=== PATIENT | female | born 1990 | race Caucasian/White ===

== ENCOUNTER 2020-05-29 11:12 | Day surgery (SDC) | payer OTHER ==
[~2020-05-29] VITALS: Ht 162.6 cm; Wt 90.0 kg
[~2020-05-29 11:12] MED LIST: ALBU90OI INH; CYCL10 PO; HYDACE5 PO; IBUP600 PO; PROM25 PO; RANI150 PO
--- NOTE | 2020-05-29 14:41 | NUR ---
PT HAD SMALL AMOUNT OF S/S DRAINAGE ON THU PAD AFTER GETTING UP TO GET DRESSED. Patient up to Ambulate independently. Gait steady. Discharge instructions reviewed with patient. Patient verbalizes understanding. Copy given to patient to take home. Patient States Post-Procedure ride home has been arranged. Discharged via wheelchair to private car for ride home. ALL BELONINGS RETURNED TO PATIENT.
--- NOTE | 2020-05-30 07:21 | NUR ---
05/30/20 0721 Soniya Li VERIFICATIONS: EDIT CHART.
== END 2020-05-29 22:58 | disposition home or self-care (01) ==
LOC: ORSCMMR 11:12 → ORD 12:15 → ORSCMMR 22:58
PROVIDERS: Obstetrics & Gynecology
PROC: 10D17ZZ Extraction of Products of Conception, Retained, Via Natural or Artificial Opening (ICD-10-PCS; principal; 2020-05-29 12:15)
DX: O03.39 Incomplete spontaneous abortion with other complications (principal)
CPT/HCPCS: 88305; J0690; J1100; J1885; J2210; J2250; J2405; J2704; J3010; J7120

== ENCOUNTER → 2024-11-09 | Outpatient (CLI) | payer OTHER | LOC: LAB 09:22 → LAB SHORT 09:22 | DX: O09.90 Supervision of high risk pregnancy, unspecified, unspecified trimester (principal); Z3A.00 Weeks of gestation of pregnancy not specified | CPT/HCPCS: 87081; 87150 ==

== ENCOUNTER 2024-12-14 07:12 | Inpatient (IN) | payer OTHER ==
[2024-12-14] VITALS (41 sets, daily range): BP systolic 74–156; BP diastolic 42–121
[~2024-12-14] VITALS: Ht 162.6 cm; Wt 95.2 kg
[2024-12-14] MEDS ORDERED: Misoprostol 200 MCG Tab PR PRN (10:35)
[2024-12-14] MEDS ORDERED: Acetaminophen 500 MG Tab PO PRN (10:35)
[2024-12-14] MEDS ORDERED: Penicillin G Potassium 5,000,000 UNITS in NS 250 ML IV ONE (10:35)
[2024-12-14] MEDS ORDERED: Lactated Ringer's 1,000 ML IV PRN (10:35)
[2024-12-14] MEDS ORDERED: Oxytocin 10 Unit / ML Vial IM PRN (10:35)
[2024-12-14] MEDS ORDERED: Calcium Carbonate 500 MG Tab Chew PO SCH (10:35)
[2024-12-14] MEDS ORDERED: Tranexamic Acid 100 ML IV SCH (10:35)
[2024-12-14] MEDS ORDERED: Carboprost Tromethamine 250 MCG/ML 1ML Amp IM PRN (10:35)
[2024-12-14] MEDS ORDERED: Misoprostol 200 MCG Tab BC PRN (10:35)
[2024-12-14] MEDS ORDERED: Ondansetron HCl 2 MG / ML 2ML Vial IV PRN (10:35)
[2024-12-14] MEDS ORDERED: OXYTOCIN/RINGER'S LACTATE 500 ML IV PRN (10:35)
[2024-12-14] MEDS ORDERED: Methylergonovine Maleate 0.2MG / ML 1ML Amp IM PRN (10:35)
[2024-12-14 10:47] LABS: BASOPHILS ABSOLUTE AUTO 0.05 K/mm3 (0.00-0.23); BASOPHILS PERCENT AUTO 1 % (0-2); EOSINOPHILS ABSOLUTE AUTO 0.12 K/mm3 (0.00-0.68); EOSINOPHILS PERCENT AUTO 1 % (0-6); Hematocrit 32.9 % (33.0-51.0); Hemoglobin 10.6 g/dL (11.5-16.0); IMMATURE GRAN ABSOLUTE AUTO 0.12 K/mm3 (0.00-0.10); IMMATURE GRAN PERCENT AUTO 1 % (0-1); LYMPHOCYTES ABSOLUTE AUTO 1.62 K/mm3 (0.84-5.20); LYMPHOCYTES PERCENT AUTO 17 % (21-46); MONOCYTES ABSOLUTE AUTO 0.77 K/mm3 (0.16-1.47); MONOCYTES PERCENT AUTO 8 % (4-13); Mean Corpuscular HGB 26.7 pg (26.0-34.0); Mean Corpuscular HGB Conc 32.2 g/dL (31.5-36.5); Mean Corpuscular Volume 83 fL (80-100); NEUTROPHILS ABSOLUTE AUTO 7.12 K/mm3 (1.96-9.15); NEUTROPHILS PERCENT AUTO 73 % (41-73); Platelet Count 301 K/mm3 (150-400); RDW Coefficient Variation 15.1 % (11.7-14.2); RDW Standard Deviation 45.1 fL (35.1-46.3); Red Blood Cell Count 3.97 M/mm3 (3.80-5.20)
[2024-12-14] MEDS ORDERED: PRENATAL TABLE1 EAC2 PO (11:12)
[2024-12-14] MEDS ORDERED: Aspir 8181 MG PO (11:12)
[2024-12-14] MEDS ORDERED: ePHEDrine Sulfate 50 MG/ML 1ML Injection XX PRN (12:35)
[2024-12-14] MEDS ORDERED: FentaNYL 2mcg/ml-Bup 0.1% Epd 250 ML EPI PRN (12:35)
[2024-12-14] MEDS ORDERED: Lactated Ringer's 1,000 ML IV SCH ×2 (12:35)
[2024-12-14] MEDS ORDERED: IBUP800 PO (13:24)
[2024-12-14] MEDS ORDERED: Penicillin G Potassium 2,500,000 UNITS in Dextrose 5% 100 ML IV SCH (14:45)
[2024-12-14] MEDS ORDERED: FentaNYL Citrate 50 MCG/ML 2 ML Injection ONE ×2 (15:14→23:53)
[2024-12-14] MEDS ORDERED: FentaNYL Citrate 50 MCG/ML 2 ML Injection IV ONE (15:15)
[2024-12-15] VITALS (51 sets, daily range): BP systolic 70–131; BP diastolic 38–89
[2024-12-15] MEDS ORDERED: Misoprostol 200 MCG Tab PO SCH ×2 (00:05→02:25)
[2024-12-15] MEDS ORDERED: Lactated Ringer's 1,000 ML IV ONE ×3 (00:05→02:25)
[2024-12-15] MEDS ORDERED: Methylergonovine Maleate 0.2MG / ML 1ML Amp IM SCH ×2 (00:05→02:25)
[2024-12-15] MEDS ORDERED: Carboprost Tromethamine 250 MCG/ML 1ML Amp IM SCH ×2 (00:05→02:25)
[2024-12-15] MEDS ORDERED: CeFAZolin Sodium 2,000 MG in NS 100 ML IV ONE ×2 (00:05→04:00)
[2024-12-15] MEDS ORDERED: NS 250 ML IV SCH (00:10)
[2024-12-15] MEDS ORDERED: OXYTOCIN/RINGER'S LACTATE 500 ML IV ONE (00:13)
[2024-12-15] MEDS ORDERED: NS 1,000 ML IV ONE ×2 (00:19→08:05)
[2024-12-15 00:25] LABS: Hematocrit 26.7 % (33.0-51.0); Hemoglobin 8.5 g/dL (11.5-16.0); Mean Corpuscular HGB 26.3 pg (26.0-34.0); Mean Corpuscular HGB Conc 31.8 g/dL (31.5-36.5); Mean Corpuscular Volume 83 fL (80-100); Mean Platelet Volume 8.8 fL (9.1-12.4); Platelet Count 245 K/mm3 (150-400); RDW Standard Deviation 45.4 fL (35.1-46.3); Red Blood Cell Count 3.23 M/mm3 (3.80-5.20); White Blood Cell Count 17.35 K/mm3 (4.00-11.30)
[2024-12-15 00:57] LABS: International Normalized Ratio 0.88; Prothrombin Time Results 9.5 Sec (9.7-11.5)
[2024-12-15] MEDS ORDERED: Misoprostol 200 MCG Tab PR PRN (01:15)
[2024-12-15] MEDS ORDERED: Acetaminophen 325 MG TABLET PO PRN (01:20)
[2024-12-15] MEDS ORDERED: Carboprost Tromethamine 250 MCG/ML 1ML Amp IM PRN (01:20)
[2024-12-15] MEDS ORDERED: Benzocaine Topical Anesthetic Spray 60GM TOP PRN (01:20)
[2024-12-15] MEDS ORDERED: Witch Hazel/Glycerin PADS TOP PRN (01:20)
[2024-12-15] MEDS ORDERED: Docusate Sodium 100 MG Cap PO PRN (01:20)
[2024-12-15] MEDS ORDERED: OXYTOCIN/RINGER'S LACTATE 500 ML IV SCH (01:20)
[2024-12-15] MEDS ORDERED: Ibuprofen 400 MG Tab PO PRN (01:20)
[2024-12-15] MEDS ORDERED: Ketorolac Tromethamine 30mg Vial IV PRN (01:25)
[2024-12-15] MEDS ORDERED: FLU VACC TS2024-25(6MOS UP)/PF 45 MCG/0.5 ML SYRINGE IM ONE (01:25)
[2024-12-15] MEDS ORDERED: Lactated Ringer's 1,000 ML IV SCH (01:25)
[2024-12-15] MEDS ORDERED: Tranexamic Acid 100 ML IV SCH (01:55)
[2024-12-15 03:31] LABS: Hematocrit 31.2 % (33.0-51.0); Hemoglobin 10.3 g/dL (11.5-16.0); Mean Corpuscular HGB 27.8 pg (26.0-34.0); Mean Corpuscular Volume 84 fL (80-100); Mean Platelet Volume 9.2 fL (9.1-12.4); Platelet Count 232 K/mm3 (150-400); RDW Coefficient Variation 15.4 % (11.7-14.2); RDW Standard Deviation 46.8 fL (35.1-46.3); White Blood Cell Count 25.65 K/mm3 (4.00-11.30)
--- NOTE | 2024-12-15 05:24 | NUR ---
Pt complete 12/14/242104, set up and began pushing with staff interpreter and Makeda Rutherford CNM 2121, assited pushing with various positions and techniques. Baby girl delivered 12/14/24 at 2313, Placenta delivered manual assist 2351. Dr. Collazo called to bedside at 2358, Hemmorhage protical started per QBL of 2,283, at 2358 400 bucal cytotec given with 1st dose of methergine at 0002 and Hemabate at 0004. 2nd IV placed. Provider at bedside at 0004. 0008 IV fluid bolus started, 0012 400 miso given rectal by provider. 2nd bag of oxytocin started at 0017, and 2nd methergine given at 0026, alvarez placed by MD at 0025. 8 mg zofran given per MD orders, blood started at 0033, o2 placed on at 2 L at 0055. repair completed at 0045 with total blood loss of 2,953. Bedside debrife completed by Dr. Collazo with pt and significant other. catheter to stay in place throughout the evening with blood continueing as ordered.
[2024-12-15 06:36] LABS: BASOPHILS ABSOLUTE AUTO 0.05 K/mm3 (0.00-0.23); BASOPHILS PERCENT AUTO 0 % (0-2); EOSINOPHILS ABSOLUTE AUTO 0.01 K/mm3 (0.00-0.68); EOSINOPHILS PERCENT AUTO 0 % (0-6); Hematocrit 31.5 % (33.0-51.0); Hemoglobin 10.6 g/dL (11.5-16.0); IMMATURE GRAN ABSOLUTE AUTO 0.16 K/mm3 (0.00-0.10); IMMATURE GRAN PERCENT AUTO 1 % (0-1); LYMPHOCYTES PERCENT AUTO 7 % (21-46); MONOCYTES ABSOLUTE AUTO 1.53 K/mm3 (0.16-1.47); MONOCYTES PERCENT AUTO 6 % (4-13); Mean Corpuscular HGB 28.3 pg (26.0-34.0); Mean Corpuscular HGB Conc 33.7 g/dL (31.5-36.5); Mean Corpuscular Volume 84 fL (80-100); Mean Platelet Volume 9.1 fL (9.1-12.4); NEUTROPHILS ABSOLUTE AUTO 21.04 K/mm3 (1.96-9.15); NEUTROPHILS PERCENT AUTO 86 % (41-73); Platelet Count 221 K/mm3 (150-400); RDW Coefficient Variation 14.6 % (11.7-14.2); RDW Standard Deviation 45.1 fL (35.1-46.3); Red Blood Cell Count 3.75 M/mm3 (3.80-5.20); White Blood Cell Count 24.39 K/mm3 (4.00-11.30)
[2024-12-15] MEDS ORDERED: Carboprost Tromethamine 250 MCG/ML 1ML Amp IM ONE (06:53)
[2024-12-15] MEDS ORDERED: Misoprostol 200 MCG Tab PO ONE (06:53)
[2024-12-15] MEDS ORDERED: Methylergonovine Maleate 0.2MG / ML 1ML Amp IV ONE (06:53)
[2024-12-15] MEDS ORDERED: FentaNYL Citrate 50 MCG/ML 2 ML Injection IV ONE (08:05)
[2024-12-15] MEDS ORDERED: OxyCODONE HCL 5 MG TAB PO PRN (08:20)
[2024-12-15] MEDS ORDERED: Diphenoxylat/Atrop 2.5 / 0.025MG 1 Tab PO ONE (08:20)
[2024-12-15] MEDS ORDERED: Prenatal Vit/FE Fumarate/FA 1 Tab PO SCH (09:00)
[2024-12-15 10:14] LABS: BASOPHILS ABSOLUTE AUTO 0.04 K/mm3 (0.00-0.23); BASOPHILS PERCENT AUTO 0 % (0-2); EOSINOPHILS ABSOLUTE AUTO 0.01 K/mm3 (0.00-0.68); EOSINOPHILS PERCENT AUTO 0 % (0-6); Hematocrit 30.2 % (33.0-51.0); Hemoglobin 10.4 g/dL (11.5-16.0); IMMATURE GRAN ABSOLUTE AUTO 0.09 K/mm3 (0.00-0.10); IMMATURE GRAN PERCENT AUTO 0 % (0-1); LYMPHOCYTES ABSOLUTE AUTO 1.33 K/mm3 (0.84-5.20); LYMPHOCYTES PERCENT AUTO 6 % (21-46); MONOCYTES ABSOLUTE AUTO 1.39 K/mm3 (0.16-1.47); MONOCYTES PERCENT AUTO 7 % (4-13); Mean Corpuscular HGB 28.3 pg (26.0-34.0); Mean Corpuscular HGB Conc 34.4 g/dL (31.5-36.5); Mean Corpuscular Volume 82 fL (80-100); Mean Platelet Volume 8.9 fL (9.1-12.4); NEUTROPHILS ABSOLUTE AUTO 18.16 K/mm3 (1.96-9.15); NEUTROPHILS PERCENT AUTO 87 % (41-73); Platelet Count 198 K/mm3 (150-400); RDW Coefficient Variation 14.6 % (11.7-14.2); RDW Standard Deviation 43.8 fL (35.1-46.3); Red Blood Cell Count 3.67 M/mm3 (3.80-5.20); White Blood Cell Count 21.02 K/mm3 (4.00-11.30)
[2024-12-15 10:45] LABS: International Normalized Ratio 0.89; Prothrombin Time Results 9.6 Sec (9.7-11.5)
[2024-12-15 23:16] LABS: BASOPHILS ABSOLUTE AUTO 0.03 K/mm3 (0.00-0.23); BASOPHILS PERCENT AUTO 0 % (0-2); EOSINOPHILS ABSOLUTE AUTO 0.07 K/mm3 (0.00-0.68); EOSINOPHILS PERCENT AUTO 0 % (0-6); Hematocrit 26.9 % (33.0-51.0); Hemoglobin 9.1 g/dL (11.5-16.0); IMMATURE GRAN ABSOLUTE AUTO 0.12 K/mm3 (0.00-0.10); IMMATURE GRAN PERCENT AUTO 1 % (0-1); LYMPHOCYTES PERCENT AUTO 10 % (21-46); MONOCYTES ABSOLUTE AUTO 1.52 K/mm3 (0.16-1.47); MONOCYTES PERCENT AUTO 9 % (4-13); Mean Corpuscular HGB 28.5 pg (26.0-34.0); Mean Corpuscular HGB Conc 33.8 g/dL (31.5-36.5); Mean Corpuscular Volume 84 fL (80-100); Mean Platelet Volume 8.8 fL (9.1-12.4); NEUTROPHILS ABSOLUTE AUTO 13.72 K/mm3 (1.96-9.15); NEUTROPHILS PERCENT AUTO 80 % (41-73); Platelet Count 205 K/mm3 (150-400); RDW Coefficient Variation 14.9 % (11.7-14.2); RDW Standard Deviation 45.7 fL (35.1-46.3); Red Blood Cell Count 3.19 M/mm3 (3.80-5.20); White Blood Cell Count 17.26 K/mm3 (4.00-11.30)
[2024-12-16 00:15] VITALS: BP 94/52
[2024-12-16 02:25] VITALS: BP 111/59
[2024-12-16 04:01] VITALS: BP 91/58
[2024-12-16 05:51] VITALS: BP 92/60
--- NOTE | 2024-12-16 05:56 | NUR ---
0555 PAD TOO LITTLE LOCHIA TO MEASURE. ORANGE PAD DRY WEIGHT EQUAL TO WEIGHT OF SOILED PAD.
[2024-12-16 08:07] VITALS: BP 136/80
[2024-12-16 12:46] VITALS: BP 126/73
== END 2024-12-16 13:35 | disposition home or self-care (01) | DRG 797 ==
LOC: BC 07:12 → OBS 07:12 → BC 07:24
PROVIDERS: Obstetrics & Gynecology; ADMIT Advanced Practice Midwife
PROC: 10E0XZZ Delivery of Products of Conception, External Approach (ICD-10-PCS; principal; 2024-12-14)
PROC: 0KQM0ZZ Repair Perineum Muscle, Open Approach (ICD-10-PCS; 2024-12-14)
PROC: 3E0R3BZ Introduction of Anesthetic Agent into Spinal Canal, Percutaneous Approach (ICD-10-PCS; 2024-12-14)
PROC: 00HU33Z Insertion of Infusion Device into Spinal Canal, Percutaneous Approach (ICD-10-PCS; 2024-12-14)
PROC: 10D17ZZ Extraction of Products of Conception, Retained, Via Natural or Artificial Opening (ICD-10-PCS; 2024-12-15)
PROC: 30233N1 Transfusion of Nonautologous Red Blood Cells into Peripheral Vein, Percutaneous Approach (ICD-10-PCS; 2024-12-15)
PROC: 30233K1 Transfusion of Nonautologous Frozen Plasma into Peripheral Vein, Percutaneous Approach (ICD-10-PCS; 2024-12-15)
DX: O48.0 Post-term pregnancy (principal); O72.1 Other immediate postpartum hemorrhage; Z37.0 Single live birth; Z3A.40 40 weeks gestation of pregnancy; O99.824 Streptococcus B carrier state complicating childbirth; O77.0 Labor and delivery complicated by meconium in amniotic fluid; O99.214 Obesity complicating childbirth; O26.53 Maternal hypotension syndrome, third trimester; O70.1 Second degree perineal laceration during delivery
CPT/HCPCS: 36415; 36430; 51702; 85025; 85027; 85384; 85610; 85730; 96372; A9270; J0690; J1720; J1885; J2210; J2405; J2540; J2590; J3010; J7050; J7120; P9016; P9059